=== PATIENT | female | born 1975 | race Two or more races ===

== ENCOUNTER 2018-02-13 17:55 | Emergency (ER) | payer MEDICAID ==
[~2018-02-13] VITALS: Ht 170.2 cm; Wt 65.7 kg
[2018-02-13 19:27] LABS: BASOPHILS # (AUTO) 0.03 x10^3/uL (0-0.1); BASOPHILS % (AUTO) 0 % (0-1); EOSINOPHILS # (AUTO) 0.15 x10^3/uL (0-0.4); EOSINOPHILS % (AUTO) 2 % (1-7); LYMPHOCYTES # (AUTO) 1.62 x10^3/uL (1-3.4); LYMPHOCYTES % (AUTO) 17 % (22-44); MD NO; MEAN CORPUSCULAR HEMOGLOBIN 27.5 pg (27.0-34.8); MEAN CORPUSCULAR HGB CONC 32.8 g/dL (32.4-35.8); MEAN CORPUSCULAR VOLUME 83.8 fL (80-100); MONOCYTES # (AUTO) 0.75 x10^3/uL (0.2-0.8); MONOCYTES % (AUTO) 8 % (2-9); NEUTROPHILS # (AUTO) 7.02 x10^3/uL (1.8-6.8); NEUTROPHILS % (AUTO) 73 % (42-75); PLATELET COUNT 408 x10^3/uL (130-400); RED BLOOD COUNT 4.44 x10^6/uL (3.82-5.3); RED CELL DISTRIBUTION WIDTH 13.5 % (9.6-15.2)
[2018-02-13] MEDS ORDERED: ONDANSETRON ODT 4 MG ONE (19:27)
[2018-02-13] MEDS ORDERED: DEXAMETHASONE 4 MG/ML, 5ML ONE (19:28)
[2018-02-13] MEDS ORDERED: OXYcodone/APAP 5/325MG TABLET ONE (19:28)
[2018-02-13] MEDS ORDERED: OXYcodone/APAP 5/325MG TABLET PO ONE (19:30)
[2018-02-13] MEDS ORDERED: ONDANSETRON ODT 4 MG PO ONE (19:30)
[2018-02-13] MEDS ORDERED: SODIUM CHLORIDE FLUSH 10ML SYR IVF ONE (19:30)
[2018-02-13] MEDS ORDERED: SODIUM CHLORIDE 0.9% 1,000ML IVBOLUS ONE (19:30)
[2018-02-13] MEDS ORDERED: AMPICILLIN/SULBACTAM 3 GM in SODIUM CHLORIDE 0.9% 100 ML IV ONE (19:30)
[2018-02-13] MEDS ORDERED: DEXAMETHASONE 4 MG/ML, 1ML IVPush ONE (19:30)
[2018-02-13 19:36] LABS: ALBUMIN 3.5 g/dL (3.4-5.0); ANION GAP 5 mmol/L (5-15); CALCIUM 8.8 mg/dL (8.5-10.1); CHLORIDE 106 mmol/L (98-107)
[2018-02-13 19:41] LABS: ALANINE AMINOTRANSFERASE 35 U/L (12-78); ALKALINE PHOSPHATASE 133 U/L (45-117); BILIRUBIN,TOTAL 0.6 mg/dL (0.2-1.0); CREATININE 0.62 mg/dL (0.55-1.02); TOTAL PROTEIN 8.1 g/dL (6.4-8.2)
[2018-02-13] MEDS ORDERED: OMNIPAQUE 350 MG/ML, 100ML BOTTLE ONE (20:17)
[2018-02-13 21:01] VITALS: BP 123/87
== END 2018-02-13 21:25 | disposition home or self-care (01) ==
LOC: ED 21:10
DX: J02.0 Streptococcal pharyngitis (principal); L04.0 Acute lymphadenitis of face, head and neck; F17.200 Nicotine dependence, unspecified, uncomplicated
CPT/HCPCS: 36415; 70491; 80053; 84703; 85025; 96365; 96375; 99285; J0295; J1100; J7030; Q0162; Q9967

== ENCOUNTER 2018-02-15 12:42 | Emergency (ER) | payer MEDICAID ==
[~2018-02-15] VITALS: Ht 170.2 cm; Wt 67.4 kg
[2018-02-15 12:45] VITALS: BP 128/74
[2018-02-15] MEDS ORDERED: AMOXICILLIN 500 MG CAPSULE PO ONE (14:00)
[2018-02-15] MEDS ORDERED: AMOXICILLIN 250 MG/5 ML, ORAL SUSP PO ONE (14:00)
== END 2018-02-15 14:06 | disposition home or self-care (01) ==
LOC: ED 13:45
DX: J02.9 Acute pharyngitis, unspecified (principal); F17.200 Nicotine dependence, unspecified, uncomplicated
CPT/HCPCS: 99283

== ENCOUNTER 2018-02-15 23:43 | Emergency (ER) | payer MEDICAID ==
[~2018-02-15] VITALS: Ht 170.2 cm; Wt 68.6 kg
[2018-02-15 23:46] VITALS: BP 133/87
== END 2018-02-16 00:55 | disposition home or self-care (01) ==
LOC: ED 02-16 00:29
DX: J02.8 Acute pharyngitis due to other specified organisms (principal); B97.89 Other viral agents as the cause of diseases classified elsewhere; F17.200 Nicotine dependence, unspecified, uncomplicated
CPT/HCPCS: 87081; 87880; 99284